=== PATIENT | male | born 1960 | race Caucasian/White ===

== ENCOUNTER 2018-11-11 19:59 | Inpatient (IN) ==
[2018-11-11] MEDS ORDERED: IPRATROPIUM/ALBUTEROL 3 ML AMPUL.NEB NEB ONE ×2 (20:16→23:50)
[2018-11-11] MEDS ORDERED: DEXAMETHASONE 10 MG/ML VIAL IV ONE (20:35)
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
[2018-11-11 21:12] LABS: Basophils # (Auto) 0 K/mcL (0.0-0.3); Basophils % (Auto) 0.3 % (0.0-2.0); Eosinophils # (Auto) 0.2 K/mcL (0.0-0.7); Eosinophils % (Auto) 2.7 % (0.0-7.0); Granulocytes % (Auto) 62.2 % (38.0-78.0); Lymphocytes # (Auto) 2.4 K/mcL (1.5-4.8); Mean Cell Volume 91.9 fL (80.0-100.0); Monocytes # (Auto) 0.7 K/mcL (0.1-0.9); Monocytes % (Auto) 7.8 % (1.0-12.0); Platelet Count 149 K/mcL (140-440); Red Cell Distribution Width 12.9 % (11.5-14.5)
[2018-11-11 21:30] LABS: ALT/SGPT 54 U/l (0-40); Albumin 3.9 gm/dL (3.2-5.2); Albumin/Globulin Ratio 1.2 (1.0-2.3); Alkaline Phosphatase 48 U/L (39-117); Blood Urea Nitrogen 11 mg/dl (6-20); Lipase 35 U/L (7-60); proBNP 398.8 pg/ml (0-125)
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
[2018-11-11] MEDS ORDERED: THIAMINE 100 MG in 0.9 % SODIUM CHLORIDE 50 ML IV ONE (23:22)
[2018-11-11] MEDS ORDERED: ALBUTEROL SULFATE 2.5 MG/3 ML NEBULIZER NEB PRN (23:22)
[2018-11-11] MEDS ORDERED: ONDANSETRON 4 MG/2 ML VIAL IV PRN (23:22)
[2018-11-11] MEDS ORDERED: ACETAMINOPHEN 325 MG TABLET PO PRN (23:22)
[2018-11-11] MEDS ORDERED: AZITHROMYCIN 250 MG TABLET PO ONE (23:22)
[2018-11-11] MEDS: DEXTROSE 5%-LR 1,000 ML IV SCH (23:39)
[2018-11-11] MEDS ORDERED: DIAZEPAM 5 MG TABLET ONE (23:44)
[2018-11-11] MEDS: DIAZEPAM 5 MG TABLET PO PRN (23:46)
[2018-11-11] MEDS: IPRATROPIUM/ALBUTEROL 3 ML AMPUL.NEB NEB SCH (23:54)
[2018-11-12] MEDS: DIAZEPAM 5 MG TABLET PO PRN ×5 (00:03→19:23)
[2018-11-12] MEDS ORDERED: IPRATROPIUM/ALBUTEROL 3 ML AMPUL.NEB NEB ONE (02:46)
[2018-11-12] MEDS: IPRATROPIUM/ALBUTEROL 3 ML AMPUL.NEB NEB SCH ×6 (02:57→23:12)
[2018-11-12 05:43] LABS: Basophils # (Auto) 0 K/mcL (0.0-0.3); Basophils % (Auto) 0.2 % (0.0-2.0); Eosinophils # (Auto) 0 K/mcL (0.0-0.7); Eosinophils % (Auto) 0.4 % (0.0-7.0); Granulocytes % (Auto) 84.4 % (38.0-78.0); Lymphocytes # (Auto) 0.7 K/mcL (1.5-4.8); Lymphocytes % (Auto) 14.4 % (15.5-49.0); Mean Cell Volume 92.2 fL (80.0-100.0); Mean Corpuscular HGB Conc 33.3 g/dL (31.0-36.0); Monocytes # (Auto) 0 K/mcL (0.1-0.9); Monocytes % (Auto) 0.6 % (1.0-12.0); Platelet Count 131 K/mcL (140-440); RBC 4.71 M/mcL (4.50-5.90)
--- NOTE | 2018-11-12 05:47 | XRay Report ---
INDICATION: Dyspnea TECHNIQUE: PA and lateral upright chest x-ray COMPARISON: Previous chest x-rays dated 11/08/2018, 10/23/2018, 12/15/2014 FINDINGS:Prominent interstitium bilaterally. No acute parenchymal infiltrates. No acute abnormality. No interval change. Heart size and vascularity are normal. No pulmonary edema. There is no pulmonary congestion. Tg and mediastinum are negative. IMPRESSION: 1. No acute abnormality. 2. No interval change since 11/08/2018 Interpreted and Authenticated by: Ernesto Shah 11/12/18
[2018-11-12] MEDS: 0.9 % SODIUM CHLORIDE 10 ML SYRINGE IV SCH ×3 (05:49→20:38)
[2018-11-12 06:01] LABS: ALT/SGPT 46 U/l (0-40); Albumin 3.4 gm/dL (3.2-5.2); Albumin/Globulin Ratio 1.1 (1.0-2.3); Alkaline Phosphatase 41 U/L (39-117); Bilirubin,Direct < 0.2 mg/dL (0.0-0.3); Blood Urea Nitrogen 10 mg/dl (6-20); Gamma Glutamyl Transpeptidase 20 U/L (8-61); Uric Acid 5.7 mg/dL (2.5-8.0)
--- NOTE | 2018-11-12 07:20 | Emergency Department Note ---
ED Note Addendum Note Addendum: I reviewed this case of Mariaa CONTRERAS. I agree with her evaluation management documentation. I interviewed the patient myself as well and discussed the case with Dr. Melgar our hospitalist who agreed to admit the patient for COPD exacerbation
[2018-11-12] MEDS: MAGNESIUM OXIDE 400 MG TABLET PO SCH ×2 (08:41→20:36)
[2018-11-12] MEDS: THIAMINE 100 MG TABLET PO SCH (08:42)
[2018-11-12] MEDS: predniSONE 20 MG TABLET PO SCH (08:42)
[2018-11-12] MEDS: AZITHROMYCIN 250 MG TABLET PO SCH (08:42)
[2018-11-12] MEDS: HEPARIN 5,000 UNIT/ML VIAL SQ SCH ×2 (08:43→20:32)
--- NOTE | 2018-11-12 09:24 | Internal Med Progress Note ---
Medical - PN: Subj Patient information: Note initiated : 11/12/18 at 9:22 am Service Date, if different from initiated Date: [] Patient: Ivan Hays a 58 y/o M admitted on 11/11/18 for Shortness Of Breath, Cough. Chief Complaint: [] Interval history: Mr. Hays is a 58 year old M with history of smoking, schizophrenia homeless person presents to the hospital today for evaluation of shortness of breath going on for the last 2 weeks. The patient notes that he has been short of breath that has progressively getting worse, cough with greenish sputum wheezing. The patient denies any fevers or chills or Reiger's. He denies any chest pain, has chronic headaches, admits to having chronic leg pains but no new joint pains. He denies any GI symptoms denies any symptoms, he does have a history of anxiety from his pattern of schizophrenia. The patient in the emergency room on presentation was afebrile hemodynamically stable however hypoxic. He was actively wheezing. He was given a round of nebulizer with slight improvement in his oxygen levels but it dropped down to less than 90% required 2 L of oxygen to keep it more than 90. Chest x-ray shows no acute infiltrate no CHF. Labs are stable. Flu test in the ER was negative patient is being admitted to the hospital with a diagnosis of acute COPD exacerbation 11/12 Pt seen examined, no acute overnight issues, tolerating po diet well, no new complaint still on oxygen Pertinent ROS: Denies headache, dizziness Denies chest pain, palpitations improving cough and shortness of breath Denies abdominal pain, nausea or vomiting. - Constitutional Vitals: Vital Signs Temp Pulse Resp BP Pulse Ox 97.7 F 75 20 110/65 94 11/12/18 07:25 11/12/18 07:26 11/12/18 08:47 11/12/18 07:25 11/12/18 08:47 Period Temp Pulse Resp BP Sys/Schmidt Pulse Ox Last 24 Hr 97.7 F-98.5 F 60-99 18-24 102-124/63-78 86-97 Intake and Output 11/11/18 11/12/18 11/12/18 21:59 05:59 13:59 Intake Total 460 240 Output Total 550 225 Balance -90 15 Weight 200 lb 200 lb Intake & Output: Intake & Output 11/11/18 11/12/18 11/12/18 21:59 05:59 13:59 Intake Total 460 240 Output Total 550 225 Balance -90 15 Weight 200 lb 200 lb Intake: Oral 460 240 Output: Void Amount 550 225 Other: Meal Breakfast Percent of Meal Consumed 100% Feeding Ability Independent Urine Appearance Clear Urine Color Bright Yellow Urine Odor Normal # Voids 1 Exam: Constitutional; Afebrile, cooperative, alert, not in distress. Respiratory system: Air Entry equal on both sides,reynaldo exp wheezing, speaking f ull sentences, no accessory muscle use. CVS- Rate rhythm regular, S1,S2 heard, no gallop, no rub. Abdomen- Soft nontender abdomen, no organomegaly, no tenderness, no guarding or rigidity, SPECIALTY PERSON- AOOx3, moving all extremities, no gross focal deficit noted. Medical - PN: Obj Da - Labs CBC & Chem 7: 11/12/18 04:05 11/12/18 04:05 Labs: Abnormal Lab Results 11/12/18 11/12/18 11/11/18 04:05 04:05 20:35 Plt Count 131 L Gran % 84.4 H Lymph % (Auto) 14.4 L [place] % (Auto) 0.6 L Lymph # (Auto) 0.7 L [place] # (Auto) 0 L D-Dimer 0.43 H Carbon Dioxide Glucose 226 H AST ALT 46 H NT-Pro-B Natriuret Pep 11/11/18 20:35 Plt Count Gran % Lymph % (Auto) [place] % (Auto) Lymph # (Auto) [place] # (Auto) D-Dimer Carbon Dioxide 34 H Glucose 136 H AST 41 H ALT 54 H NT-Pro-B Natriuret Pep 398.8 H Meds: Medications Acetaminophen (Tylenol) 650 mg PO Q6HP PRN PRN Reason: PAIN/FEVER > 101 Albuterol Sulfate (Ventolin) 2.5 mg NEB Q2HP PRN PRN Reason: Shortness Of Breath Albuterol/Ipratropium (Duoneb) 3 ml NEB Q4HRT [facility] Last Admin: 11/12/18 07:12 Dose: 3 ml Documented by: Azithromycin (Zithromax) 250 mg PO DAILY [facility]; Protocol Stop: 11/15/18 09:01 Last Admin: 11/12/18 08:42 Dose: 250 mg Documented by: Diazepam (Valium) 5 - 10 mg PO TIDP PRN PRN Reason: anxiety Last Admin: 11/12/18 00:03 Dose: 5 mg Documented by: Heparin Sodium (Porcine) (Heparin) 5,000 unit SQ Q12 [facility] Last Admin: 11/12/18 08:43 Dose: 5,000 unit Documented by: Dextrose/Lactated Ringer's (Dextrose 5%-Lactated Ringers) 1,000 mls @ 84 mls/hr IV .[id number] [facility] Last Admin: 11/11/18 23:39 Dose: 84 mls/hr Documented by: Magnesium Oxide (Magnesium Oxide) 400 mg PO BID [facility] Last Admin: 11/12/18 08:41 Dose: 400 mg Documented by: Nicotine (Nicoderm) 21 mg TOPICAL DAILY@1000 TANG Ondansetron HCl (Zofran) 4 mg IV Q6HP PRN PRN Reason: Nausea And Vomiting Prednisone (Prednisone) 40 mg PO QACOX SOUTH Last Admin: 11/12/18 08:42 Dose: 40 mg Documented by: Sodium Chloride (Saline Flush) 10 ml IV Q8 [facility] Last Admin: 11/12/18 05:49 Dose: Not Given Documented by: Thiamine HCl (Vitamin B1) 100 mg PO DAILY [facility] Last Admin: 11/12/18 08:42 Dose: 100 mg Documented by: Medical - PN: A/P - Time Spent With Patient Total time spent is greater than 50% in coordination of care (as documented) at patient's floor/unit and/or counseling patient: - Narrative A/P Narrative: A/P Acute hypoxic respiratory failure Acute copd exacerbation paranoid schizophrenia Tobacco abuse h/o alcohol abuse Neuropathy Plan wean off oxygen. continue with Steroids, duonebs and zithromax resume home medication once verified Valium for anxiety. OT/PT /ST eval, nicotine patch Case management help given home less status. DVT hep sq Diet regular Full code. Medical - PN: Qual - VTE Deep Vein Thrombosis/Pulmonary Embolism Present on Admission: No
[2018-11-12] MEDS: NICOTINE 21 MG PATCH TOPICAL SCH (10:00)
[2018-11-12] MEDS: DEXTROSE 5%-LR 1,000 ML IV SCH (11:39)
[2018-11-12 18:08] LABS: Amphetamine Screen,Urine NONE DETECTED (NONDETECTED); Benzodiazepines Screen,Urine SUSPECT POSITIVE (NONDETECTED); Cocaine Screen,Urine NONE DETECTED (NONDETECTED); Opiate Screen,Urine NONE DETECTED (NONDETECTED); Oxycodone, Urine Screen NONE DETECTED (NONDETECTED)
[2018-11-12] MEDS: GABAPENTIN 100 MG CAPSULE PO SCH (20:36)
[2018-11-12] MEDS ORDERED: OLANZapine 5 MG TABLET PO SCH (21:00)
[2018-11-12] MEDS ORDERED: QUEtiapine 100 MG TABLET PO SCH (21:00)
[2018-11-13] MEDS: IPRATROPIUM/ALBUTEROL 3 ML AMPUL.NEB NEB SCH ×3 (03:04→11:30)
[2018-11-13 06:27] LABS: ALT/SGPT 36 U/l (0-40); Albumin 3.4 gm/dL (3.2-5.2); Albumin/Globulin Ratio 1.1 (1.0-2.3); Alkaline Phosphatase 38 U/L (39-117); Bilirubin,Direct < 0.2 mg/dL (0.0-0.3); Blood Urea Nitrogen 14 mg/dl (6-20); Gamma Glutamyl Transpeptidase 19 U/L (8-61)
[2018-11-13 06:30] LABS: Basophils # (Auto) 0 K/mcL (0.0-0.3); Basophils % (Auto) 0.1 % (0.0-2.0); Eosinophils # (Auto) 0 K/mcL (0.0-0.7); Eosinophils % (Auto) 0.2 % (0.0-7.0); Granulocytes % (Auto) 76.5 % (38.0-78.0); Lymphocytes # (Auto) 1.3 K/mcL (1.5-4.8); Lymphocytes % (Auto) 18.1 % (15.5-49.0); Mean Cell Volume 92.8 fL (80.0-100.0); Mean Corpuscular HGB Conc 32.3 g/dL (31.0-36.0); Monocytes # (Auto) 0.4 K/mcL (0.1-0.9); Monocytes % (Auto) 5.1 % (1.0-12.0); Platelet Count 133 K/mcL (140-440); RBC 4.58 M/mcL (4.50-5.90)
[2018-11-13] MEDS: GABAPENTIN 100 MG CAPSULE PO SCH (08:47)
[2018-11-13] MEDS: AZITHROMYCIN 250 MG TABLET PO SCH (08:47)
[2018-11-13] MEDS: MAGNESIUM OXIDE 400 MG TABLET PO SCH (08:47)
[2018-11-13] MEDS: predniSONE 20 MG TABLET PO SCH (08:48)
[2018-11-13] MEDS: THIAMINE 100 MG TABLET PO SCH (08:48)
[2018-11-13] MEDS: HEPARIN 5,000 UNIT/ML VIAL SQ SCH (08:49)
[2018-11-13] MEDS ORDERED: CITALOPRAM 20 MG TABLET PO SCH (09:00)
[2018-11-13] MEDS: NICOTINE 21 MG PATCH TOPICAL SCH (09:14)
--- NOTE | 2018-11-13 10:10 | Internal Med Progress Note ---
Medical - PN: Subj Patient information: Note initiated : 11/13/18 at 10:07 am Service Date, if different from initiated Date: [] Patient: Ivan Hays a 58 y/o M admitted on 11/11/18 for Shortness Of Breath, Cough. Chief Complaint: [] Interval history: Mr. Hays is a 58 year old M with history of smoking, schizophrenia homeless person presents to the hospital today for evaluation of shortness of breath going on for the last 2 weeks. The patient notes that he has been short of breath that has progressively getting worse, cough with greenish sputum wheezing. The patient denies any fevers or chills or Reiger's. He denies any chest pain, has chronic headaches, admits to having chronic leg pains but no new joint pains. He denies any GI symptoms denies any symptoms, he does have a history of anxiety from his pattern of schizophrenia. The patient in the emergency room on presentation was afebrile hemodynamically stable however hypoxic. He was actively wheezing. He was given a round of nebulizer with slight improvement in his oxygen levels but it dropped down to less than 90% required 2 L of oxygen to keep it more than 90. Chest x-ray shows no acute infiltrate no CHF. Labs are stable. Flu test in the ER was negative patient is being admitted to the hospital with a diagnosis of acute COPD exacerbation 11/12 Pt seen examined, no acute overnight issues, tolerating po diet well, no new complaint still on oxygen 11/13 pt seen examined, no acute issuues, ambulating with help of PT, still on oxygen, Pt wishes to leave the hospital, educated again the need to stay, to ensure appropriate treatment he has noted that he will leave the hospital today Should he chose he can sign out against medical advise, he does understand the risk of leaving the hospital. Pertinent ROS: Denies headache, dizziness Denies chest pain, palpitations Denies cough or shortness of breath Denies abdominal pain, nausea or vomiting. - Constitutional Vitals: Vital Signs Temp Pulse Resp BP Pulse Ox 97.7 F 62 16 106/65 94 11/13/18 06:46 11/13/18 07:43 11/13/18 07:43 11/13/18 06:46 11/13/18 07:43 Period Temp Pulse Resp BP Sys/Schmidt Pulse Ox Last 24 Hr 97.4 F-98.8 F 54-81 14-20 100-115/57-70 86-94 Intake and Output 11/12/18 11/13/18 11/13/18 21:59 05:59 13:59 Intake Total 440 400 240 Output Total 450 1301 Balance -10 -901 240 Weight 200 lb Intake & Output: Intake & Output 11/12/18 11/13/18 11/13/18 21:59 05:59 13:59 Intake Total 440 400 240 Output Total 450 1301 Balance -10 -901 240 Weight 200 lb Intake: Oral 200 240 Tube Feeding 240 GI Tube Flush 400 Output: Void Amount 450 1300 # of times incontinent of urine 1 Other: Meal Dinner Breakfast Percent of Meal Consumed 100% 100% Feeding Ability Independent Independent Urine Appearance Clear Clear Clear Sediment Urine Color Bright Yellow Pale Bright Yellow Urine Odor Normal Normal Normal Stool Size Small Moderate Stool Consistency Loose Loose # Voids 1 1 1 # Bowel Movements 1 Exam: Constitutional; Afebrile, cooperative, alert, not in distress. Respiratory system: Air Entry equal on both sides, decreased air entry, mild exp wheezing present, much improved from admission. . CVS- Rate rhythm regular, S1,S2 heard, no gallop, no rub. Abdomen- Soft nontender abdomen, no organomegaly, no tenderness, no guarding or rigidity, [employer]- AOOx3, moving all extremities, no gross focal deficit noted. Medical - PN: Obj Da - Labs CBC & Chem 7: 11/13/18 04:30 11/13/18 04:30 Labs: Abnormal Lab Results 11/13/18 11/13/18 11/12/18 04:30 04:30 17:00 Plt Count 133 L Gran % Lymph % (Auto) [place] % (Auto) Lymph # (Auto) 1.3 L [place] # (Auto) D-Dimer Sodium 146 H Carbon Dioxide Glucose 150 H AST ALT Alkaline Phosphatase 38 L NT-Pro-B Natriuret Pep U Benzodiazepines Scrn Suspect positive A U Marijuana (THC) Screen Suspect positive A 11/12/18 11/12/18 11/11/18 04:05 04:05 20:35 Plt Count 131 L Gran % 84.4 H Lymph % (Auto) 14.4 L [place] % (Auto) 0.6 L Lymph # (Auto) 0.7 L [place] # (Auto) 0 L D-Dimer 0.43 H Sodium Carbon Dioxide Glucose 226 H AST ALT 46 H Alkaline Phosphatase NT-Pro-B Natriuret Pep U Benzodiazepines Scrn U Marijuana (THC) Screen 11/11/18 20:35 Plt Count Gran % Lymph % (Auto) [place] % (Auto) Lymph # (Auto) [place] # (Auto) D-Dimer Sodium Carbon Dioxide 34 H Glucose 136 H AST 41 H ALT 54 H Alkaline Phosphatase NT-Pro-B Natriuret Pep 398.8 H U Benzodiazepines Scrn U Marijuana (THC) Screen Meds: Medications Acetaminophen (Tylenol) 650 mg PO Q6HP PRN PRN Reason: PAIN/FEVER > 101 Albuterol Sulfate (Ventolin) 2.5 mg NEB Q2HP PRN PRN Reason: Shortness Of Breath Albuterol/Ipratropium (Duoneb) 3 ml NEB Q4HRT [facility] Last Admin: 11/13/18 07:35 Dose: 3 ml Documented by: Azithromycin (Zithromax) 250 mg PO DAILY [facility]; Protocol Stop: 11/15/18 09:01 Last Admin: 11/13/18 08:47 Dose: 250 mg Documented by: Citalopram Hydrobromide (Celexa) 40 mg PO DAILY [facility] Last Admin: 11/13/18 08:48 Dose: 40 mg Documented by: Diazepam (Valium) 5 - 10 mg PO TIDP PRN PRN Reason: anxiety Last Admin: 11/12/18 19:23 Dose: 5 mg Documented by: Gabapentin (Neurontin) 200 mg PO TID [facility] Last Admin: 11/13/18 08:47 Dose: 200 mg Documented by: Heparin Sodium (Porcine) (Heparin) 5,000 unit SQ Q12 [facility] Last Admin: 11/13/18 08:49 Dose: 5,000 unit Documented by: Magnesium Oxide (Magnesium Oxide) 400 mg PO BID [facility] Last Admin: 11/13/18 08:47 Dose: 400 mg Documented by: Nicotine (Nicoderm) 21 mg TOPICAL DAILY@1000 [facility] Last Admin: 11/13/18 09:14 Dose: 21 mg Documented by: Olanzapine (Zyprexa) 20 mg PO HS [facility] Last Admin: 11/12/18 20:34 Dose: 20 mg Documented by: Ondansetron HCl (Zofran) 4 mg IV Q6HP PRN PRN Reason: Nausea And Vomiting Prednisone (Prednisone) 40 mg PO QAC [facility] Last Admin: 11/13/18 08:48 Dose: 40 mg Documented by: Quetiapine Fumarate (Seroquel) 400 mg PO [facility] Last Admin: 11/12/18 20:36 Dose: 400 mg Documented by: Thiamine HCl (Vitamin B1) 100 mg PO DAILY [facility] Last Admin: 11/13/18 08:48 Dose: 100 mg Documented by: Medical - PN: A/P - Time Spent With Patient Total time spent is greater than 50% in coordination of care (as documented) at patient's floor/unit and/or counseling patient: - Narrative A/P Narrative: A/P Acute hypoxic respiratory failure Acute copd exacerbation paranoid schizophrenia Tobacco abuse h/o alcohol abuse Neuropathy Plan wean off oxygen as tolerated. continue with Steroids, duonebs and zithromax resume home medication Valium for anxiety cut back on dose as its not verified, but pt notes he takes it, I would like to avoid valium withdrwal . OT/PT /ST eval, nicotine patch Case management help given home less status. pt has decision making capacity to sign out should he so desire. DVT hep sq Diet regular Full code. Medical - PN: Qual - VTE Deep Vein Thrombosis/Pulmonary Embolism Present on Admission: No
[2018-11-13] MEDS ORDERED: DIAZEPAM 2 MG TABLET PO PRN (10:11)
--- NOTE | 2018-11-13 15:01 | Discharge Summary ---
Medical - DS: Prov Patient information: Note initiated : 11/13/18 at 3:00 pm Service Date, if different from initiated Date: [] Patient: Ivan Hays 58 y/o M admitted on 11/13/18 for Shortness Of Breath, Cough. Chief Complaint: [] Date of admission: 11/13/18 11:26 Discharge date: 11/13/18 (AMA) Primary care physician: Phoenix Reagan Consults: 11/11/18 Consult to Physician [CONS] Stat Comment: Consulting Provider: Bashir Melgra Reason For Exam: Physician to Consult Medical - DS: Meds - Discharge Medications Active and Home Medications: Home Medications Diazepam [Valium] 10 mg PO TID 11/14/15 [History Confirmed 11/12/18 Last Taken 04/10/17] OLANZapine [Zyprexa] 20 mg PO HS 11/14/15 [History Confirmed 11/12/18 Last Taken 04/10/17] QUEtiapine FUMARATE [Seroquel] 400 mg PO HS 11/14/15 [History Confirmed 11/12/18 Last Taken 04/10/17] Etodolac [Lodine] 400 mg PO BIDP PRN #20 tab 07/07/17 [Rx Last Taken Unknown] Citalopram Hydrobromide [Citalopram HBr] 40 mg PO DAILY 11/12/18 [History Confirmed 11/12/18 Last Taken Unknown] Gabapentin [Neurontin] 200 mg PO TID 11/12/18 [History Confirmed 11/12/18 Last Taken Unknown] Medical - DS: Hosp Hospital course: Mr. Hays is a 58 year old M Mr. Hays is a 58 year old M with history of smoking, schizophrenia homeless person presents to the hospital today for evaluation of shortness of breath going on for the last 2 weeks. The patient notes that he has been short of breath that has progressively getting worse, cough with greenish sputum wheezing. The patient denies any fevers or chills or Reiger's. He denies any chest pain, has chronic headaches, admits to having chronic leg pains but no new joint pains. He denies any GI symptoms denies any symptoms, he does have a history of anxiety from his pattern of schizophrenia. The patient in the emergency room on presentation was afebrile hemodynamically stable however hypoxic. He was actively wheezing. He was given a round of nebulizer with slight improvement in his oxygen levels but it dropped down to less than 90% required 2 L of oxygen to keep it more than 90. Chest x-ray shows no acute infiltrate no CHF. Labs are stable. Flu test in the ER was negative patient is being admitted to the hospital with a diagnosis of acute COPD exacerbation 11/12 Pt seen examined, no acute overnight issues, tolerating po diet well, no new complaint still on oxygen 11/13 pt seen examined, no acute issuues, ambulating with help of PT, still on oxygen, Pt wishes to leave the hospital, educated again the need to stay, to ensure appropriate treatment he has noted that he will leave the hospital today Should he chose he can sign out against medical advise, he does understand the risk of leaving the hospital. Patient left AGAINST MEDICAL ADVICE Discharge diagnosis: Acute exacerbation COPD acute hypoxic respiratory failure tobacco abuse - Time Spent with Patient Total time spent providing and/or coordinating discharge services: Medical - DS: Exam - Constitutional Vitals: Vital Signs Temp Pulse Pulse Pulse Resp BP BP 11/13/18 12:37 11/13/18 11:48 98 F 56 L 18 110/60 11/13/18 11:40 18 11/13/18 07:43 62 16 11/13/18 07:29 54 L 16 11/13/18 06:46 97.7 F 16 106/65 11/13/18 06:45 55 L 54 L 16 11/13/18 04:00 97.4 F 67 16 100/57 11/12/18 23:53 98.1 F 61 14 110/66 11/12/18 23:13 55 L 18 11/12/18 20:00 11/12/18 19:36 97.7 F 77 18 101/58 11/12/18 19:00 66 20 11/12/18 16:23 69 18 11/12/18 16:00 98.8 F 67 18 115/70 Pulse Ox 11/13/18 12:37 86 L 11/13/18 11:48 93 11/13/18 11:40 87 L 11/13/18 07:43 94 11/13/18 07:29 94 11/13/18 06:46 94 11/13/18 06:45 94 11/13/18 04:00 94 11/12/18 23:53 94 11/12/18 23:13 11/12/18 20:00 90 11/12/18 19:36 92 11/12/18 19:00 92 11/12/18 16:23 11/12/18 16:00 90 Intake and Output 11/13/18 11/13/18 11/13/18 05:59 13:59 21:59 Intake Total 400 240 Output Total 1301 Balance -901 240 Intake: Oral 240 GI Tube Flush 400 Output: Void Amount 1300 # of times incontinent of urine 1 Other: Meal Breakfast Percent of Meal Consumed 100% Feeding Ability Independent Urine Appearance Clear Clear Sediment Urine Color Pale Bright Yellow Urine Odor Normal Normal Stool Size Moderate Stool Consistency Loose # Voids 1 1 Weight 90.718 kg Patient Weight 11/14/18 05:59 Weight 90.718 kg Medical - DS: Data Labs on day of discharge: Labs from last 24 hours 11/13/18 11/13/18 11/12/18 04:30 04:30 17:00 WBC 7.1 RBC 4.58 Hgb 13.7 Hct 42.5 MCV 92.8 MCH 30.0 MCHC 32.3 RDW 13.0 Plt Count 133 L MPV 9.4 Gran % 76.5 Lymph % (Auto) 18.1 [place] % (Auto) 5.1 Eos % (Auto) 0.2 Baso % (Auto) 0.1 Gran # 5.4 Lymph # (Auto) 1.3 L [place] # (Auto) 0.4 Eos # (Auto) 0 Baso # (Auto) 0 Sodium 146 H Potassium 4.1 Chloride 108 Carbon Dioxide 30 Anion Gap 8.0 BUN 14 Creatinine 0.9 GFR Calculation 93 Glucose 150 H Uric Acid 5.0 Calcium 9.0 Phosphorus 3.6 Magnesium 2.1 Total Bilirubin 0.3 Direct Bilirubin < 0.2 GGT 19 AST 21 ALT 36 Alkaline Phosphatase 38 L Lactate Dehydrogenase 169 Total Protein 6.5 Albumin 3.4 Globulin 3.1 Albumin/Globulin Ratio 1.1 Triglycerides 49 Urine Opiates Screen None detected Ur Oxycodone Screen None detected Urine Methadone Screen None detected Ur Barbiturates Screen None detected Ur Phencyclidine Scrn None detected Ur Amphetamines Screen None detected U Benzodiazepines Scrn Suspect positive A Urine Cocaine Screen None detected U Marijuana (THC) Screen Suspect positive A Urine Alcohol None detected Medical - DS: A/P - Patient/Caregiver Discharge Instructions Diet: Regular Diet - Follow up Plan Follow up with: Phoenix Reagan [Primary Care Provider] - Disposition: Left Against Medical Advice Prognosis: Serious Rehab Potential: Fair Medical - DS: Qual - VTE Deep Vein Thrombosis/Pulmonary Embolism Present on Admission: No
== END 2018-11-13 14:50 | disposition left against medical advice (07) | DRG 190 ==
LOC: MEDSUR 19:59 → ED 19:59 → MEDSUR 23:19
PROVIDERS: ADMIT Internal Medicine; ATTEND Internal Medicine